=== PATIENT | male | born 1940 | race Caucasian/White ===

== ENCOUNTER 2021-02-18 12:35 | Emergency (ER) | payer MEDICARE, SELFPAY ==
[2021-02-18] VITALS (15 sets, daily range): BP systolic 149–178; BP diastolic 62–77; PULSE 45–66; RESP 12–41; O2SAT 95–100
[2021-02-18 12:55] LABS: Add Manual Diff / Slide Review NO; Basophils Absolute Auto 100 /uL (0-100); Basophils Percent Auto 1.1 % (0-2); Eosinophils Absolute Auto 300 /uL (0-450); Eosinophils Percent Auto 3.3 % (2-4); Hematocrit 30.9 % (41-53); Hemoglobin 9.9 g/dL (13.5-17.5); Lymphocytes Absolute Auto 1000 /uL (1100-4500); Mean Corpuscular HGB Conc 32.1 % (30-36); Mean Corpuscular Volume 84.1 fL (80-100); Monocytes Absolute Auto 900 /uL (0-900); Neutrophils Absolute Auto 6700 /uL (1500-7000); Neutrophils Percent Auto 74.6 % (50-75); Platelet Count 286 X10^3/uL (150-400); Red Blood Cell Count 3.68 X10^6/uL (4.5-5.9); Red Cell Distribution Width 15.6 % (11.6-14.8)
--- NOTE | 2021-02-18 13:00 | DI.RAD.S_ITS ---
PROCEDURE: XR CHEST 1V INDICATIONS: Flu like symptoms TECHNIQUE: One view of the chest was acquired. COMPARISON: None. FINDINGS: Surgical changes and devices: None. Lungs and pleura: Lungs are clear. Mild elevation of right hemidiaphragm is seen. No pleural effusions or pneumothorax. Mediastinum: Mediastinal contours appear normal. Heart size is enlarged. Bones and chest wall: No suspicious bony lesions. Overlying soft tissues appear unremarkable. IMPRESSION: No focal infiltrate, pleural effusion or pneumothorax. Dictated by: Diego Sidhu M.D. on 02/18/2021 at 13:36 Approved by: Diego Sidhu M.D. on 02/18/2021 at 13:37
--- NOTE | 2021-02-18 13:00 | ED.DIZZY ---
HPI - Dizziness General Chief Complaint: Dizziness Stated Complaint: Dizzy, Sent From [facility] Time Seen by Provider: 02/18/21 12:37 Source: patient and family Mode of arrival: Wheelchair Limitations: no limitations History of Present Illness HPI Narrative: 81M nonsmoker with history of hypertension, GERD, hyperlipidemia and macular degeneration presents from the eye clinic secondary to an anxious and dizzy feeling that started just prior to getting an intra-ocular injection. He denies any change in vision, difficulty with speech or unilateral numbness, tingling or weakness. He did develop some dizziness the median feel a bit unsteady briefly but denies any chest pain or shortness of breath. He has had no fever or chills. He denies any recent trauma or injury. He has had no medication change nor dietary change. He denies history of the same. MD complaint: dizziness Onset (ago): hour(s) Timing: sudden onset Description: sense of movement History of similar episodes: No History of trauma: No Severity: moderate Relieving factors: remaining still Exacerbating factors: movement Associated symptoms: nausea Related Data Home Medications Medication Instructions Recorded Confirmed aspirin [Adult Aspirin EC Low 81 mg PO DAILY 02/18/21 02/18/21 Strength] atorvastatin 40 mg PO BEDTIME 02/18/21 02/18/21 famotidine [Pepcid] 40 mg PO DAILY 02/18/21 02/18/21 febuxostat [Uloric] 20 mg PO DAILY 02/18/21 02/18/21 hydralazine 50 mg PO TID 02/18/21 02/18/21 hydrochlorothiazide 25 mg PO QAM 02/18/21 02/18/21 irbesartan [Avapro] 300 mg PO QAM 02/18/21 02/18/21 metoprolol succinate 50 mg PO QAM 02/18/21 02/18/21 Previous Rx's Medication Instructions Recorded meclizine 25 mg PO BID-TID PRN #14 tab 02/18/21 Allergies Allergy/AdvReac Type Severity Reaction Status Date / Time amlodipine [AMLODIPINE] AdvReac Intermediate bleeding Verified 02/18/21 12:48 gums codeine [CODEINE] AdvReac Intermediate hallucinati Verified 02/18/21 12:48 ons Review of Systems Constitutional Constitutional: Denies chills, Denies fatigue, Denies fever(s), Denies frequent falls, Denies lethargy and Denies weakness Eyes Eyes: Denies change in vision, Denies eye discharge, Denies irritation and Denies loss of vision ENT Ears, Nose, Mouth, and Throat: Denies change in voice, Reports dizziness, Denies neck pain, Denies sore throat and Denies throat swelling Cardiovascular Cardiovascular: Denies chest pain, Denies irregular heart rhythm, Denies lightheadedness, Denies palpitations, Denies dyspnea, Denies dyspnea on exertion and Denies orthopnea Respiratory Respiratory: Denies cough, Denies dyspnea, Denies dyspnea on exertion and Denies wheezing Gastrointestinal Gastrointestinal: Denies abdominal pain, Denies change in bowel habits, Denies diarrhea, Reports nausea and Denies vomiting Musculoskeletal Musculoskeletal: Denies neck pain and Denies numbness Integumentary/Breasts Skin/Breast: Denies pruritus, Denies erythema, Denies rash and Denies wounds Neurologic Neurologic: Denies behavioral changes, Denies confusion, Reports dizziness, Denies frequent falls, Denies loss of vision, Denies numbness and Denies weakness Psychiatric Psychiatric: Denies anxiety, Denies behavioral changes, Denies confusion, Denies depression, Denies homicidal ideation and Denies suicidal ideation Endocrine Endocrine: Denies fatigue, Denies flushing and Denies palpitations Hematologic/Lymphatic Hematologic/Lymphatic: Denies easy bruising Allergic/Immunologic Allergic/Immunologic: Denies urticaria, Denies throat swelling and Denies wheezing Patient History Medical History Gout Hypertension Social History Smoking Status: Never smoker Smoking Status: Never smoker alcohol intake frequency: 0-2 drinks per day Substance Use Type: does not use Exam Narrative Exam Narrative: GENERAL: [81] year old patient appears stated age. Well-nourished, well-developed patient, in mild distress. HEAD: Atraumatic. Normocephalic. EYES: Pupils equal round and reactive. Extraocular motions intact. No scleral icterus. No injection or drainage. ENT: Nose without bleeding, purulent drainage. Throat without erythema, tonsillar hypertrophy or exudate. Airway patent. NECK: Trachea midline. Non tender CARDIOVASCULAR: Regular rate and rhythm without murmurs, gallops, or rubs. RESPIRATORY: Clear to auscultation. Breath sounds equal bilaterally. No wheezes, rales, or rhonchi. GASTROINTESTINAL: Abdomen soft, non-tender, nondistended. EXTREMITIES: No edema or joint tenderness. BACK: Nontender without deformity or crepitance. No flank tenderness. NEURO: AOx3. SKIN: No rash or erythema of visible areas NIH Stroke Scale 1a. LOC: Patient is alert and keenly responsive (0) 1b. LOC Questions: Patient answers both LOC questions accurately (0) 1c. LOC Commands: Patient performs both tasks correctly (0) 2. Best Gaze: Normal (0) 3. Visual: No visual loss (0) 4. Facial palsy: Normal symmetrical movements (0) 5. Motor arm: No drift (0) 6. Motor leg: No drift (0) 7. Limb ataxia: Absent (0) 8. Sensory: Normal (0) 9. Best language: No aphasia; normal (0) 10. Dysarthria: Normal (0) 11. Extinction and inattention: No abnormality (0) NIHSS: 0 Initial Vital Signs Initial Vital Signs: Vital Signs Pulse Rate 59 L 02/18/21 12:49 Pulse Oximetry 96 02/18/21 12:49 Course Orders Ordered: Discontinued Medications Sodium Chloride (Normal Saline 0.9%) 1,000 mls @ 125 mls/hr IV CONT TD Last Infusion: 02/18/21 15:06 Dose: 0 mls/hr Documented by: Infusion: 02/18/21 14:44 Dose: 0 mls/hr Documented by: Admin: 02/18/21 13:20 Dose: 125 mls/hr Documented by: MILDRED Vital Signs Vital signs: Vital Signs - 8 hr 02/18/21 12:49 02/18/21 12:50 Pulse Rate 59 L 54 L Respiratory Rate 15 Blood Pressure 149/65 H Pulse Oximetry 96 95 MDM - Dizziness Lab Data Result diagrams: 02/18/21 12:49 02/18/21 12:49 Labs: Lab Results 02/18/21 02/18/21 02/18/21 Range/Units 12:49 12:49 12:49 WBC 9.0 (4.5-11.0) X10^3/uL RBC 3.68 L (4.5-5.9) X10^6/uL Hgb 9.9 L (13.5-17.5) g/dL Hct 30.9 L (41-53) % MCV 84.1 (80-100) fL MCH 27.0 (26-34) PG MCHC 32.1 (30-36) % RDW 15.6 H (11.6-14.8) % Plt Count 286 (150-400) X10^3/uL Neut % (Auto) 74.6 (50-75) % Lymph % (Auto) 11.0 L (25-40) % [place] % (Auto) 10.0 (3-14) % Eos % (Auto) 3.3 (2-4) % Baso % (Auto) 1.1 (0-2) % Neut # (Auto) 6700 (8036-6887) /uL Lymph # (Auto) 1000 L (3410-3670) /uL [place]ette # (Auto) 900 (0-900) /uL Eos # (Auto) 300 (0-450) /uL Baso # (Auto) 100 (0-100) /uL PT 11.9 (10.1-12.7) SECONDS INR 1.1 (0.9-1.3) Sodium 139 (137-145) mmol/L Potassium 4.4 (3.4-5.1) mmol/L Chloride 108 H (98-107) mmol/L Carbon Dioxide 22 (22-32) mmol/L BUN 39 H (9-20) mg/dL Creatinine 1.95 H (0.66-1.25) mg/dL Estimated GFR 33.2 L (>60) mL/min BUN/Creatinine Ratio 20.0 (6-22) Glucose 126 H (80-110) mg/dL Serum Osmolality Calcium 9.2 (8.4-10.2) mg/dL Magnesium 2.2 (1.6-2.3) mg/dL Total Bilirubin 0.4 (0.2-1.3) mg/dL AST 31 (17-59) IU/L ALT 20 (<50) IU/L Alkaline Phosphatase 105 (38-126) U/L Total Creatine Kinase 238 H (55-170) U/L CK-MB (CK-2) 3.19 H (<2.37) ng/mL CK-MB (CK-2) Rel Index 1.3 L (1.5-5.0) % Troponin I < 0.012 (0.01-0.034) ng/mL NT-Pro-B Natriuret Pep 326 (<450) pg/mL Total Protein 7.4 (6.3-8.2) g/dL Albumin 4.2 (3.5-5.0) g/dL Globulin 3.2 (1.7-4.1) g/dL Albumin/Globulin Ratio 1.3 (1.0-2.8) Ur Random Sodium (30-90) mmol/L Urine Creatinine mg/dL 02/18/21 02/18/21 Range/Units 13:36 14:18 WBC (4.5-11.0) X10^3/uL RBC (4.5-5.9) X10^6/uL Hgb (13.5-17.5) g/dL Hct (41-53) % MCV (80-100) fL MCH (26-34) PG MCHC (30-36) % RDW (11.6-14.8) % Plt Count (150-400) X10^3/uL Neut % (Auto) (50-75) % Lymph % (Auto) (25-40) % [place] % (Auto) (3-14) % Eos % (Auto) (2-4) % Baso % (Auto) (0-2) % Neut # (Auto) (8898-1891) /uL Lymph # (Auto) (1440-6348) /uL Payette # (Auto) (0-900) /uL Eos # (Auto) (0-450) /uL Baso # (Auto) (0-100) /uL PT (10.1-12.7) SECONDS INR (0.9-1.3) Sodium (137-145) mmol/L Potassium (3.4-5.1) mmol/L Chloride (98-107) mmol/L Carbon Dioxide (22-32) mmol/L BUN (9-20) mg/dL Creatinine (0.66-1.25) mg/dL Estimated GFR (>60) mL/min BUN/Creatinine Ratio (6-22) Glucose (80-110) mg/dL Serum Osmolality 301 Calcium (8.4-10.2) mg/dL Magnesium (1.6-2.3) mg/dL Total Bilirubin (0.2-1.3) mg/dL AST (17-59) IU/L ALT (<50) IU/L Alkaline Phosphatase (38-126) U/L Total Creatine Kinase (55-170) U/L CK-MB (CK-2) (<2.37) ng/mL CK-MB (CK-2) Rel Index (1.5-5.0) % Troponin I (0.01-0.034) ng/mL NT-Pro-B Natriuret Pep (<450) pg/mL Total Protein (6.3-8.2) g/dL Albumin (3.5-5.0) g/dL Globulin (1.7-4.1) g/dL Albumin/Globulin Ratio (1.0-2.8) Ur Random Sodium 112 H (30-90) mmol/L Urine Creatinine 96.3 mg/dL Urine Dip Bedside Urine Glucose Negative Bedside Urine Bilirubin - Negative Bedside Urine Ketone - Negative Urine Specific [place] 1.025 Bedside Urine Occult Blood - Negative Bedside Urine pH 6.0 Bedside Urine Protein - Negative Bedside Urine Urobilinogen - Negative Bedside Urine Nitrite - Negative Bedside Urine Leukocytes - Negative Esterase Imaging Data CT scan - head: Radiologist's Impression: Nate Aleman 81 M [address] Scan ReportSigned Patient: Nate Aleman BMR#: [id number]: 1940Acct:[id number]/Sex: 81 / MDate of Service: 02/18/21Loc: EDAccession Number: [id number] Procedure: CT head/brain wo con Ordering Provider: Agustin Galeano D.O. PROCEDURE: CT HEAD/BRAIN WO CON INDICATIONS: dizziness, vomiting TECHNIQUE: Noncontrast 4.5 mm thick angled axial sections acquired from the foramen magnum to the vertex, with coronal and sagittal reformats. For radiation dose reduction, the following was used: automated exposure control, adjustment of mA and/or kV according to patient size. COMPARISON: None. FINDINGS: Image quality: Excellent. CSF spaces: Basal cisterns are patent. No extra-axial fluid collections. The ventricles are symmetric in size and shape. Brain: No intracranial bleeds or masses. There is cerebral volume loss for age, with resultant ventricular and sulcal prominence. There are periventricular and deep white matter chronic small vessel ischemic changes. There is intracranial internal carotid artery atherosclerosis. Skull and face: Calvarium and visualized facial bones appear intact, without suspicious lesions. Sinuses: Visualized sinuses and mastoids are clear. IMPRESSION: 1. No acute intracranial process. 2. Moderate to severe atrophy and chronic microvascular ischemic changes. Dictated by: Sofia Caal M.D. on 02/18/2021 at 13:32 Approved by: Sofia Caal M.D. on 02/18/2021 at 13:33 Renal US: Radiologist's Impression: Chart Viewer Diagnostics DATE TYPE STATUS REF RANGE/AUTHOR Hx 02/18/21 13:36 Aye Mcbride 02/18/21 13:01 Sofia Caal 02/18/21 13:00 Diego Sidhu Lee B 81, 1940 [facility], Main ED Dizziness Search Chart No Data to Display bleeding gums hallucinations ONSET 02/18/21 15:00 Nate Aleman 81 M [address] [address]Aanrbrtdzt ReportSigned Patient: Nate Aleman BMR#: [id number]: 1940Acct:[id number]/Sex: 81 / MDate of Service: 02/18/21Loc: EDAccession Number: [id number] Procedure: US renal complete Ordering Provider: Agustin Galeano D.O. PROCEDURE: US RENAL COMPLETE INDICATIONS: ACUTE RENAL FAILURE TECHNIQUE: Real-time scanning was performed of the kidneys and bladder, with image documentation. COMPARISON: None. FINDINGS: Kidneys: Kidneys are normal in size. Right kidney measures 10.7 cm long; left kidney measures 10.4 cm long. Right renal cortical thickness is 1.4 cm; left renal cortical thickness is 1.6 cm. There is increased right renal cortical echogenicity. No hydronephrosis or nephrolithiasis. No suspicious solid mass lesions. Multiple right renal cysts are noted. There is a 0.8 x 0.9 x 0.7 centimeter cyst in the mid right kidney that is complex. Multiple nonobstructing left renal stones noted. Largest stones measure 9 millimeters and 7 millimeters in diameter. Bladder: Pre-void bladder volume is 171 mL. Post-void residual is 22 mL. Pre-void images demonstrate no intraluminal masses or stones. On pre-void images, right ureteral jets are noted with color Doppler interrogation. (Of note, ureteral jets may not be detectable in up to 25% of cases due to insufficient differences in specific gravity between ureteral and bladder urine). Miscellaneous: No free pelvic fluid. IMPRESSION: 1. No hydronephrosis. 2. Bosniak 2 right renal cyst. 3. Nonobstructing left renal stones. Dictated by: Aye Mcbride MD, PhD on 02/18/2021 at 14:37 Approved by: Aye Mcbride MD, PhD on 02/18/2021 at 14:42 [facility] Narrative Medical decision making narrative: 81-year-old male presents with relatively sudden onset of anxiousness and some dizziness associated with nausea. His symptoms had largely resolved by the time he got here and he had a very reassuring physical exam and duration of his visit. He had no chest pressure heaviness, no shortness of breath, fever or chills. CT is unremarkable, renal ultrasound obtained has initially was unclear what his baseline renal function is, however in reviewing labs had been obtained from his primary care provider his creatinine is only slightly increased. Multiple diagnoses including cardiac and neurologic are considered as possibilities with thought unlikely given the physical exam and diagnostics. He states that he felt quite anxious when preparing to get his injection and felt himself getting worked up. He did admittedly not have much to eat or drink this morning and questions whether that may have played a role. He was given extensive return precautions and encouraged to follow very closely with his primary care providers and return immediately with any change or recurrence of symptoms. His questions have been answered to his apparent satisfaction Discharge Plan Departure Patient Disposition: Home Clinical Impression: Dizziness, Acute dehydration Instructions: DI for Dizziness-Nonvertigo Activity Restrictions/Additional Instructions: *You have been diagnosed with [dizziness with evidence of dehydration and slight increase in kidney function.] *What to do: *Please continue to take your regular medications as directed. [x ] New medication prescriptions sent to your pharmacy: [ ] [ ] New medication written as a paper prescription [ ] No new medications given *Please follow up with your primary care provider in 2-3 days, call for an appointment. Let them know you were seen in the Emergency Department and that we ask that you be seen in follow up. We will electronically transmit a record of today's note if your PCP is in our system *If you do not have a primary care provider please contact the [facility] Resource line at [phone]. They will ask some questions about your medical history and help get you set up with a doctor in the community. *Return to Emergency Department if you should have any new, worsening or concerning symptoms, such as [fever greater than 101 F, shaking chills, worsening pain, persistent vomiting or other bothersome symptoms] Prescriptions: New meclizine 25 mg tablet 25 mg PO BID-TID PRN (Reason: dizziness) Qty: 14 RF: 0 No Action atorvastatin 40 mg Tablet 40 mg PO BEDTIME RF: 0 metoprolol succinate 50 mg Tablet Extended Release 24 Hr 50 mg PO QAM RF: 0 famotidine [Pepcid] 40 mg Tablet 40 mg PO DAILY RF: 0 aspirin [Adult Aspirin EC Low Strength] 81 mg Tablet,Delayed Release (Dr/Ec) 81 mg PO DAILY RF: 0 hydralazine 50 mg Tablet 50 mg PO TID RF: 0 hydrochlorothiazide 25 mg Tablet 25 mg PO QAM RF: 0 irbesartan [Avapro] 300 mg Tablet 300 mg PO QAM RF: 0 febuxostat [Uloric] 40 mg Tablet 20 mg PO DAILY RF: 0 Referrals: Miscellaneous,Doctor, MD [Primary Care Provider] -
[2021-02-18 13:02] LABS: INR 1.1 (0.9-1.3); Prothrombin Time 11.9 SECONDS (10.1-12.7)
[2021-02-18 13:06] LABS: Alanine Aminotransferase 20 IU/L (<50); Albumin 4.2 g/dL (3.5-5.0); Albumin Globulin Ratio 1.3 (1.0-2.8); Alkaline Phosphatase 105 U/L (38-126); Aspartate Aminotransferase 31 IU/L (17-59); Bilirubin Total 0.4 mg/dL (0.2-1.3); Blood Urea Nitrogen 39 mg/dL (9-20); Calcium 9.2 mg/dL (8.4-10.2); Carbon Dioxide 22 mmol/L (22-32); Chloride 108 mmol/L (98-107); Creatine Kinase 238 U/L (55-170); Estimated Glomerular Filt Rate 33.2 mL/min (>60); Globulin 3.2 g/dL (1.7-4.1); Glucose 126 mg/dL (80-110); HEMOLYSIS < 15 (0-50); Magnesium 2.2 mg/dL (1.6-2.3); Potassium 4.4 mmol/L (3.4-5.1); Sodium 139 mmol/L (137-145); Total Protein 7.4 g/dL (6.3-8.2)
[2021-02-18 13:18] LABS: NT-proBNP (BNP-Adult 18+) 326 pg/mL (<450); Troponin I < 0.012 ng/mL (0.01-0.034)
[2021-02-18] MEDS: SODIUM CHLORIDE 0.9% 1,000 ML 125 ML IV (13:20)
[2021-02-18 13:21] LABS: CKMB % Relative Index 1.3 % (1.5-5.0); Creatine Kinase MB 3.19 ng/mL (<2.37)
--- NOTE | 2021-02-18 13:36 | DI.US.S_ITS ---
PROCEDURE: US RENAL COMPLETE INDICATIONS: ACUTE RENAL FAILURE TECHNIQUE: Real-time scanning was performed of the kidneys and bladder, with image documentation. COMPARISON: None. FINDINGS: Kidneys: Kidneys are normal in size. Right kidney measures 10.7 cm long; left kidney measures 10.4 cm long. Right renal cortical thickness is 1.4 cm; left renal cortical thickness is 1.6 cm. There is increased right renal cortical echogenicity. No hydronephrosis or nephrolithiasis. No suspicious solid mass lesions. Multiple right renal cysts are noted. There is a 0.8 x 0.9 x 0.7 centimeter cyst in the mid right kidney that is complex. Multiple nonobstructing left renal stones noted. Largest stones measure 9 millimeters and 7 millimeters in diameter. Bladder: Pre-void bladder volume is 171 mL. Post-void residual is 22 mL. Pre-void images demonstrate no intraluminal masses or stones. On pre-void images, right ureteral jets are noted with color Doppler interrogation. (Of note, ureteral jets may not be detectable in up to 25% of cases due to insufficient differences in specific gravity between ureteral and bladder urine). Miscellaneous: No free pelvic fluid. IMPRESSION: 1. No hydronephrosis. 2. Bosniak 2 right renal cyst. 3. Nonobstructing left renal stones. Dictated by: Aye Mcbride MD, PhD on 02/18/2021 at 14:37 Approved by: Aye Mcbirde MD, PhD on 02/18/2021 at 14:42
[2021-02-18 16:50] LABS: Creatinine Urine Random 96.3 mg/dL; Sodium Urine Random 112 mmol/L (30-90)
[2021-02-18 20:56] LABS: Osmolality, Serum 301
[2021-02-19 17:10] LABS: Osmolality Urine 563 mOsmol/kg (.)
== END 2021-02-18 15:12 | disposition home or self-care (01) ==
PROVIDERS: Emergency Provider Emergency Medicine
DX: R42 Dizziness and giddiness (principal); E86.0 Dehydration; F41.9 Anxiety disorder, unspecified; R11.0 Nausea
CPT/HCPCS: 36415; 70450; 71045; 76770; 80053; 81003; 82550; 82553; 82570; 83735; 83880; 83930; 83935; 84300; 84484; 85025; 85610; 93005; 93010; 96360; 99284; 99285